=== PATIENT | female | born 2000 | race Caucasian/White ===

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

== ENCOUNTER 2021-08-29 12:43 | Emergency (ER) | payer OTHER ==
[~2021-08-29] VITALS: Ht 167.6 cm; Wt 96.2 kg
[~2021-08-29 12:43] MED LIST changes: +AUGMENTIN 875-1 EACH PO
[2021-08-29] MEDS ORDERED: ONDANSETRON ODT8 MG PO (14:19)
== END 2021-08-29 14:44 | disposition home or self-care (01) ==
LOC: ED 12:43
DX: K52.9 Noninfective gastroenteritis and colitis, unspecified (principal); Z79.899 Other long term (current) drug therapy
CPT/HCPCS: A9270

== ENCOUNTER 2022-04-06 15:06 | Emergency (ER) | payer OTHER ==
[~2022-04-06] VITALS: Ht 167.6 cm; Wt 96.2 kg
[~2022-04-06 15:06] MED LIST changes: +ONDANSETRON ODT8 MG PO
[2022-04-06] MEDS ORDERED: HYDROCODON-ACE1 EA10 PO (15:22)
[2022-04-06] MEDS ORDERED: BENZONATATE200 MG PO (15:22)
[2022-04-07] MEDS ORDERED: ONDANSETRON ODT8 MG PO (10:18)
== END 2022-04-07 13:00 | disposition home or self-care (01) ==
LOC: ED 15:06
DX: T43.222A Poisoning by selective serotonin reuptake inhibitors, intentional self-harm, initial encounter (principal); T40.2X2A Poisoning by other opioids, intentional self-harm, initial encounter; T48.3X2A Poisoning by antitussives, intentional self-harm, initial encounter; Z79.899 Other long term (current) drug therapy
CPT/HCPCS: 36415; 80053; 81001; 84703; 85025; 87088; 96361; 96374; 96375; 96376; 99284-25; G0480; J1200; J1630; J2060; J2405; J2550; J7030; J7121

== ENCOUNTER 2022-04-10 08:45 | Emergency (ER) | payer OTHER ==
[~2022-04-10] VITALS: Ht 167.6 cm; Wt 121.3 kg
[~2022-04-10 08:45] MED LIST changes: +BENZONATATE200 MG PO; +HYDROCODON-ACE1 EA10 PO
--- OUTSIDE RECORDS SUMMARY | 2022-04-10 08:51 | XMS ---
PreManage Notification: SHANE ROMERO Security Instruction Dean Events No recent Security Events currently on file CRITERIA MET - [facility] - 2 Visits in 30 Days CARE PROVIDERS ISHAN SHAH Internal Medicine 06/18/2018-Current PHONE: [phone] ADRIENNE SANCHEZ Nurse Practitioner 06/18/2018-Current PHONE: [phone] Stone has no Care Guidelines for this patient. Care History Medical/Surgical 06/18/2018 [facility] \T\middot;\T\nbsp; PATIENT IS A [employer] MEMBER. \T\middot;\T\nbsp; PLEASE REFER PATIENT TO [facility] FOR NON EMERGENT MEDICAL NEEDS. \T\middot;\ T\nbsp; [facility] CAN SEE PATIENTS SAME DAY FOR APTS IF PATIENT CALLS FIRST THING IN THE MORNING. E.D. VISIT COUNT (12 MO.) 3 NATASHA Valenzuela TOTAL 3 NOTE: Visits indicate total known visits. ED/UCC VISIT TRACKING (12 MO.) 04/10/2022 08:46 [facility] [place] TYPE: Emergency COMPLAINT: - R THIGH PAIN/NUMBNESS 04/06/2022 15:06 [facility] [place] TYPE: Emergency COMPLAINT: - OD INTENTIONAL DIAGNOSES: - Poisoning by antitussives, intentional self-harm, initial encounter - Poisoning by other opioids, intentional self-harm, initial encounter - Poisoning by selective serotonin reuptake inhibitors, intentional self-harm, initial encounter - Other bioprocess engineer (current) drug therapy 08/29/2021 12:45 [facility] [place] TYPE: Emergency COMPLAINT: - FEVER, SORE THROAT, NAUSEA DIAGNOSES: - Other senior living (current) drug therapy - Noninfective gastroenteritis and colitis, unspecified - Nausea INPATIENT VISIT TRACKING (12 MO.) No inpatient visits to display in this time frame [email or web address]
[2022-04-10] MEDS ORDERED: LIDODERM1 EACH TOP (10:17)
[2022-04-10] MEDS ORDERED: PREDNISONE20 MG PO (10:17)
== END 2022-04-10 10:30 | disposition home or self-care (01) ==
LOC: ED 08:45
DX: M54.16 Radiculopathy, lumbar region (principal)
CPT/HCPCS: 72110; 99283-25

== ENCOUNTER 2023-07-23 04:08 | Inpatient (IN) | payer BC, OTHER ==
[~2023-07-23] VITALS: Ht 167.6 cm; Wt 143.0 kg
[2023-07-23] VITALS (18 sets, daily range): BP systolic 107–140; BP diastolic 58–97
[~2023-07-23 04:08] MED LIST changes: +IBU600 MG PO; +LIDODERM1 EACH TOP; +PREDNISONE20 MG PO; +SUDAFED 12-HOU120 MG PO
[2023-07-23] MEDS ORDERED: fentaNYL citrate 100 MCG/2 ML VIAL ONE (04:13)
[2023-07-23] MEDS ORDERED: LIDOCAINE 2% VISCOUS 6 ML SYR TOP ONE (04:15)
[2023-07-23] MEDS ORDERED: CEFAZOLIN SODIUM 2 GM/20 ML SYR IV ONE (04:15)
[2023-07-23] MEDS ORDERED: ondansetron HCL 4 MG/2 ML VIAL IV ONE ×2 (04:15→06:00)
[2023-07-23] MEDS ORDERED: fentaNYL citrate 100 MCG/2 ML VIAL IV ONE ×2 (04:15→06:15)
[2023-07-23] MEDS ORDERED: DIPHTH,PERTUSS(ACELL),TET VAC 0.5 ML SYRINGE IM ONE (04:15)
[2023-07-23] MEDS ORDERED: SODIUM CHLORIDE 0.9% 1,000 ML IV PRN (04:15)
[2023-07-23 04:40] LABS: BASOPHILS 0.5 % (0-2); EOSINOPHILS 0.2 % (0-6); HEMATOCRIT 36.2 % (35.0-50.0); HEMOGLOBIN 12.1 g/dL (12.0-18.0); LYMPHOCYTES 7.1 % (24-44); MCH 27.6 (27-36); MCHC 33.3 g/dl (30-36); MCV 82.9 fl (81-99); NEUTROPHILS 88.2 % (39-80); PLATELET COUNT 247 K/uL (140-440); RBC 4.37 M/ul (4.3-5.7); RDW 14.5 (10.5-15.0)
[2023-07-23 04:54] LABS: ALBUMIN 3.5 g/dL (3.4-5.0); ALCOHOL, MEDICAL <3 ng/dL (<3); ALKALINE PHOSPHATASE 91 U/L (46-116); ALT (SGPT) 20 U/L (14-59); ANION GAP 15.3 (7-21); AST (SGOT) 18 U/L (15-37); BILIRUBIN, TOTAL 0.8 ng/dL (0.2-1.0); BUN/CREATININE RATIO 18.88 (6.0-28.6); CALCIUM 8.5 mg/dL (8.5-10.1); CARBON DIOXIDE 23 mmol/L (21-32); CHLORIDE 105 mmol/L (98-107); GLOMERULAR FILTRATION RATE,EST 93 mL/min (>60); POTASSIUM 3.3 mmol/L (3.5-5.1); UREA NITROGEN 17 mg/dL (7-18)
[2023-07-23] MEDS ORDERED: CEFAZOLIN SOD 1,000 MG/10 ML VIAL ONE (05:04)
[2023-07-23 05:06] LABS: AMPHETAMINES, URINE NEGATIVE (NEGATIVE); BARBITURATES, URINE NEGATIVE (NEGATIVE); BENZODIAZEPINE, URINE NEGATIVE (NEGATIVE); BUPRENORPHINE, URINE NEGATIVE (NEGATIVE); CANNABINOID, URINE POSITIVE (NEGATIVE); COCAINE, URINE NEGATIVE (NEGATIVE); ECSTASY, URINE NEGATIVE (NEGATIVE); FENTANYL, URINE NEGATIVE (NEGATIVE); METHADONE, URINE NEGATIVE (NEGATIVE); OPIATES, URINE NEGATIVE (NEGATIVE); OXYCODONE, URINE NEGATIVE (NEGATIVE); PHENCYCLIDINE, URINE NEGATIVE (NEGATIVE)
[2023-07-23] MEDS ORDERED: HEParin SOD (PORCINE) 5,000 UNIT/0.5 ML SYR ONE (05:14)
[2023-07-23] MEDS ORDERED: METOCLOPRAMIDE HCL 10 MG/2 ML SDV ONE (05:20)
[2023-07-23] MEDS ORDERED: ondansetron HCL 4 MG/2 ML VIAL ONE (05:20)
[2023-07-23] MEDS ORDERED: FAMOTIDINE 20 MG/ 2 ML VIAL ONE (05:20)
[2023-07-23] MEDS ORDERED: KETOROLAC TROMETHAMINE 30 MG/ML VIAL ONE (05:20)
[2023-07-23] MEDS ORDERED: SUCCINYLCHOLINE IN 0.9% NACL 200 MG/10 ML SYRINGE ONE (05:20)
[2023-07-23] MEDS ORDERED: ROCURONIUM BROMIDE 50 MG/5 ML SYR ONE (05:20)
[2023-07-23] MEDS ORDERED: SUGAMMADEX SODIUM 200 MG/2 ML ML ONE (05:20)
[2023-07-23] MEDS ORDERED: LACTATED RINGER'S 1,000 ML IV ONE ×2 (05:20→06:00)
[2023-07-23 05:21] LABS: ABO O; RH POSITIVE
[2023-07-23 05:21] LABS: ABO O; ANTIBODY SCREEN NEGATIVE; IS CROSSMATCH COMPATIBLE; RH POSITIVE
[2023-07-23] MEDS ORDERED: dexmedeTOMIDine HCl 200 MCG/2 ML VIAL ONE (05:23)
[2023-07-23] MEDS ORDERED: OXYMETAZOLINE HCL 30 ML BTL ONE (05:37)
[2023-07-23] MEDS ORDERED: ePHEDrine sulfate 50 MG/ML AMP ONE (06:10)
[2023-07-23] MEDS ORDERED: ETOMIDATE 40 MG/20 ML VIAL ONE (06:39)
[2023-07-23] MEDS ORDERED: METOCLOPRAMIDE HCL 10 MG/2 ML SDV IV PRN (06:45)
[2023-07-23] MEDS ORDERED: MEPERIDINE HCL 25 MG/1 ML VIAL IV PRN (06:45)
[2023-07-23] MEDS ORDERED: PROCHLORPERAZINE EDISYLATE 10 MG/2 ML VIAL IV PRN (06:45)
[2023-07-23] MEDS ORDERED: IBLOOD GLUCOSE TEST STRIP 1 EA TEST VI PRN (06:45)
[2023-07-23] MEDS ORDERED: MORPHINE SULFATE 10 MG/ML VIAL IV PRN ×2 (06:45)
[2023-07-23] MEDS ORDERED: fentaNYL citrate 50 MCG/ML SDV IV PRN (06:45)
[2023-07-23] MEDS ORDERED: LACTATED RINGER'S 1,000 ML IV SCH (06:45)
[2023-07-23] MEDS ORDERED: droPERidol 5 MG/2 ML VIAL IV PRN (06:45)
[2023-07-23] MEDS ORDERED: ondansetron HCL 4 MG/2 ML VIAL IV PRN ×2 (06:45)
[2023-07-23] MEDS ORDERED: NALOXONE HCL 0.4 MG SYR IV PRN (06:45)
[2023-07-23] MEDS ORDERED: KETOROLAC TROMETHAMINE 30 MG/ML VIAL IV PRN (06:45)
[2023-07-23] MEDS ORDERED: MIDAZOLAM HCL 2 MG/2 ML VIAL IV PRN (06:45)
[2023-07-23] MEDS ORDERED: LORazepam 2 MG/ML VIAL IV PRN (06:45)
[2023-07-23] MEDS ORDERED: HYDROCODONE/ACETA 5/325 TAB PO PRN (07:00)
[2023-07-23] MEDS ORDERED: ACETAMINOPHEN 1,000 MG/100 ML VIAL IV ONE (07:15)
[2023-07-23] MEDS ORDERED: XULANE PATCH1 EACH TD (08:19)
[2023-07-23] MEDS ORDERED: M-NATAL PLUS T1 EACH PO (08:19)
[2023-07-23] MEDS ORDERED: HEParin SOD (PORCINE) 5,000 UNIT/0.5 ML SYR SUB-Q SCH (09:00)
[2023-07-23] MEDS ORDERED: FAMOTIDINE 20 MG/ 2 ML VIAL IV SCH (09:00)
[2023-07-23] MEDS ORDERED: ACETAMINOPHEN 500 MG TAB PO SCH (14:00)
[2023-07-23] MEDS ORDERED: PATADAY2.5 ML OU (14:08)
[2023-07-23] MEDS ORDERED: ACETAMINOPHEN 500 MG TAB PO PRN (16:45)
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
[2023-07-24] VITALS (15 sets, daily range): BP systolic 104–134; BP diastolic 68–95
[2023-07-24 04:56] LABS: BASOPHILS 0.2 % (0-2); EOSINOPHILS 0.8 % (0-6); HEMATOCRIT 35.4 % (35.0-50.0); HEMOGLOBIN 11.6 g/dL (12.0-18.0); LYMPHOCYTES 20.2 % (24-44); MCH 27.5 (27-36); MCHC 32.7 g/dl (30-36); MCV 84.2 fl (81-99); MONOCYTES 7.4 % (0-12); NEUTROPHILS 71.4 % (39-80); PLATELET COUNT 207 K/uL (140-440)
[2023-07-24 05:05] LABS: ANION GAP 12.2 (7-21); BUN/CREATININE RATIO 13.92 (6.0-28.6); CALCIUM 7.8 mg/dL (8.5-10.1); CREATININE, SERUM 0.79 mg/dL (0.55-1.02); POTASSIUM 3.2 mmol/L (3.5-5.1)
[2023-07-24] MEDS ORDERED: droPERidol 5 MG/2 ML VIAL IV PRN (06:45)
[2023-07-24] MEDS ORDERED: ENOXAPARIN SODIUM 40 MG/0.4 ML SYR SUB-Q SCH (09:15)
[2023-07-24] MEDS ORDERED: POTASSIUM CHLORIDE 10 MEQ TABCR ONE (10:29)
[2023-07-24] MEDS ORDERED: POTASSIUM CHLORIDE 10 MEQ TABCR PO ONE (10:30)
[2023-07-24] MEDS ORDERED: HYDROCODON-ACE1 EA10 PO (14:47)
[2023-07-24] MEDS ORDERED: ACETAMINOPHEN500 MG PO (14:47)
[2023-07-24] MEDS ORDERED: ONDANSETRON ODT8 MG SL (14:48)
[2023-07-24 16:16] LABS: INFLUENZA B NAA NEGATIVE (NEGATIVE); RESPIRATORY SYNCYTIAL VIR NAA NEGATIVE (NEGATIVE)
[2023-07-24 23:36] LABS: TSH, 3RD GENERATION 2.314 uIU/mL (0.358-3.740)
[2023-07-25 06:05] VITALS: BP 119/73
[2023-07-25] MEDS ORDERED: IBUPROFEN 600 MG TAB PO PRN (07:45)
[2023-07-25] MEDS ORDERED: FAMOTIDINE 20 MG TAB PO SCH (09:00)
[2023-07-25 09:50] VITALS: BP 115/77
[2023-07-25 10:59] VITALS: BP 115/77
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
[2023-07-25 14:50] VITALS: BP 122/80
[2023-07-25 16:44] VITALS: BP 139/80
[2023-07-25 17:52] VITALS: BP 126/79
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
== END 2023-07-25 17:55 | disposition home or self-care (01) | DRG 357 ==
LOC: ED 04:08 → MS 04:28 → CCU 04:28 → MS 07-24 21:45
PROVIDERS: Family Medicine; ADMIT Surgery; ATTEND Surgery
PROC: 0DQW0ZZ Repair Peritoneum, Open Approach (ICD-10-PCS; 2023-07-23)
PROC: 0KCK0ZZ Extirpation of Matter from Right Abdomen Muscle, Open Approach (ICD-10-PCS; 2023-07-23)
PROC: 02H633Z Insertion of Infusion Device into Right Atrium, Percutaneous Approach (ICD-10-PCS; 2023-07-23)
PROC: 0JQ80ZZ Repair Abdomen Subcutaneous Tissue and Fascia, Open Approach (ICD-10-PCS; principal; 2023-07-23 05:28)
DX: S31.62 Laceration with foreign body of abdominal wall with penetration into peritoneal cavity (principal); Z68.43 Body mass index [BMI] 50.0-59.9, adult; S61.512A Laceration without foreign body of left wrist, initial encounter; S61.511A Laceration without foreign body of right wrist, initial encounter; F32.A Depression, unspecified; F41.9 Anxiety disorder, unspecified; E66.01 Morbid (severe) obesity due to excess calories; X78.1XXA Intentional self-harm by knife, initial encounter; Z90.89 Acquired absence of other organs; Z79.899 Other long term (current) drug therapy
CPT/HCPCS: 00790; 36415; 71045; 80048; 80053; 80307; 84443; 84702; 85025; 86850; 86900; 86901; 86922; 87502; 88300; 94760; A9270; G0480; J0131; J0330; J0690; J1644; J1650; J1790; J1885; J2270; J2405; J2765; J3010; J3490; J7121; U0002

== ENCOUNTER 2024-09-07 15:41 | Emergency (ER) | payer BC, OTHER ==
[~2024-09-07] VITALS: Ht 167.6 cm; Wt 130.4 kg
[~2024-09-07 15:41] MED LIST changes: +ACETAMINOPHEN500 MG PO; +M-NATAL PLUS T1 EACH PO; +ONDANSETRON ODT8 MG SL; +PATADAY2.5 ML OU; +XULANE PATCH1 EACH TD
[2024-09-07 18:49] VITALS: BP 121/79
== END 2024-09-07 18:50 | disposition home or self-care (01) ==
LOC: ED 15:41
DX: S00.531A Contusion of lip, initial encounter (principal); S00.81XA Abrasion of other part of head, initial encounter; M54.2 Cervicalgia; R07.89 Other chest pain; Y04.8XXA Assault by other bodily force, initial encounter
CPT/HCPCS: 71045; 99284-25